=== PATIENT | female | born 1985 | race Caucasian/White ===

== ENCOUNTER 2020-06-22 19:26 | Outpatient (CLI) | payer BC ==
--- NOTE | 2020-06-22 19:46 | ER Document Report ---
Doctor's Note Notes: 06/22/20 19:45 Patient seen in conjunction with physician assistant terminal manager, please see her note to correlate with mine. In short this is a 34-year-old female with a history of restless legs, history of hepatitis C, who presents to the emergency department for abdominal swelling and abdominal tightness. Her last menstrual period was back in November. On exam, abdomen is clearly gravid, with uterine fundus palpable several centimeters above the umbilicus. Ultrasound performed in the triage room showed a single intrauterine with a heart rate approximately 150. Patient has had intermittent abdominal tightening, I am concerned about the possibility of this patient who has had no care being in labor. The L&D floor was called, the patient will be transported there for further evaluation.
--- NOTE | 2020-06-22 19:53 | ER Document Report ---
ED Medical Screen (RME) - General Chief Complaint: Abdominal Pain Stated Complaint: SWOLLEN ABDOMEN Time Seen by Provider: 06/22/20 19:30 TRAVEL OUTSIDE OF THE [place] IN LAST 30 DAYS: No - HPI Notes: 06/22/20 19:50 34-year-old female to the emergency department with abdominal swelling, abdominal pain has been getting worse for the past 3 weeks. She states she has a history of hepatitis C and thought that maybe it was ascites. She also states she thought maybe it was constipation. She has been taking stimulant medicine to help her go to the bathroom. She states initially when she would take the me dicine and have a bowel movement her abdomen would get smaller. However in the past 3 weeks it has not. She has been told in the past that she has polycystic ovarian syndrome and she cannot get . Her last menstrual period was in November. She states she typically only has a menstrual cycle twice a year. Denies any vaginal bleeding. Denies any urinary complaints. Quick bedside ultrasound reveals fetus with heartbeat. Dr. Lee is bedside with me and agrees with sending patient to labor and delivery for labor check. - Related Data Allergies/Adverse Reactions: methylprednisolone [From Solu-Medrol] Allergy (Verified 08/25/16 00:55) prednisone Allergy (Verified 08/25/16 00:55)
--- NOTE | 2020-06-22 20:51 | RADIOLOGY REPORT (SQ) ---
EXAM DESCRIPTION: Third trimester OB ultrasound. CLINICAL HISTORY: 34 years Female; dates /no care TECHNIQUE: Transabdominal obstetrical ultrasound was performed. COMPARISON: None. FINDINGS: Number of fetuses: Single position: Cephalic Amniotic fluid: 16.5 cm. Largest pocket 5.29 cm. Cervix:Closed, 3.3 cm in length Placenta: Posterior and fundal. Grade 1. HR: 149 bpm Biometry: BPD: 7.64 cm, 30 weeks five days, 50th percentile HC: 27.87 cm, 30 weeks four days, 21st percentile AC: 25.45 cm, 29 weeks four days, 26th percentile FL: 5.36 cm, 28 weeks three days, 3rd percentile EFW: 1386 g, 36th percentile HC/AC: 1.10 Composite Gestational Age: 29 weeks six days. Estimated delivery date 09/01/2020 Anatomy: The bladder and three-vessel umbilical cord are seen. Four-chamber heart. There is dilatation of the renal pelvis. Right renal pelvis measures 1.1 cm and the left 1.0 cm. IMPRESSION: 1. Single living intrauterine in cephalic presentation. 2. Ultrasound gestational age of 29 weeks six days and estimated delivery date of 09/01/2020. 3. Dilatation of the renal collecting system bilaterally.
== END 2020-06-22 22:04 | disposition home or self-care (01) ==
LOC: EDSTATUS 20:06 → LC 20:07
PROVIDERS: ATTEND Obstetrics & Gynecology Gynecology
DX: O26.892 Other specified pregnancy related conditions, second trimester (principal); R19.00 Intra-abdominal and pelvic swelling, mass and lump, unspecified site; Z3A.27 27 weeks gestation of pregnancy
CPT/HCPCS: 76815

== ENCOUNTER 2020-09-02 00:05 | Inpatient (IN) | payer BC ==
[2020-09-02] MEDS ORDERED: DINOPROSTONE 10 MG VAGINAL INSERT.SR ONE (00:19)
[2020-09-02] MEDS ORDERED: RINGERS SOLUTION,LACTATED 1,000 ML IV PRN (00:39)
[2020-09-02] MEDS ORDERED: RINGERS SOLUTION,LACTATED 1,000 ML IV ONE (00:39)
[2020-09-02] MEDS ORDERED: DINOPROSTONE 10 MG VAGINAL INSERT.SR PV PRN (00:39)
[2020-09-02 01:07] LABS: APPEARANCE,URINE SLIGHTLY-CLOUDY; BILIRUBIN,URINE NEGATIVE (NEGATIVE); COLOR,URINE YELLOW; GLUCOSE, URINE 50 mg/dL (NEGATIVE); KETONES,URINE NEGATIVE (NEGATIVE); LEUKOCYTE ESTERASE,URINE NEGATIVE (NEGATIVE); NITRITE,URINE NEGATIVE (NEGATIVE); PROTEIN,URINE NEGATIVE (NEGATIVE); UROBILINOGEN,URINE NEGATIVE mg/dL (<2.0)
[2020-09-02 01:10] LABS: HEMATOCRIT 33.8 % (36.0-47.0); HEMOGLOBIN 11.5 g/dL (12.0-15.5); MEAN CORPUSCULAR HEMOGLOBIN 29.5 pg (27.0-33.4); MEAN CORPUSCULAR VOLUME 87 fl (80-97); PLATELET COUNT 129 10^3/uL (150-450); RED CELL DISTRIBUTION WIDTH 13.4 % (11.5-14.0); WHITE BLOOD COUNT 8.6 10^3/uL (4.0-10.5)
[2020-09-02 01:32] LABS: URINE AMPHETAMINES SCREEN NEGATIVE; URINE BARBITURATES SCREEN NEGATIVE; URINE BENZODIAZEPINES SCREEN NEGATIVE; URINE COCAINE SCREEN NEGATIVE; URINE MARIJUANA (THC) SCREEN NEGATIVE; URINE METHADONE SCREEN NEGATIVE; URINE PHENCYCLIDINE SCREEN NEGATIVE
--- NOTE | 2020-09-02 11:08 | Admission Physical ---
Datetime Report Generated by CPN: 09/02/2020 11:08 CURRENT ADMISSION Chief Complaint: Scheduled Induction of Labor Indication for Induction: Polyhydramnios Admit Impression : Term, Intrauterine ; Induction of Labor Admit Plan: Admit to Unit ALLERGIES Medication Allergies: Unknown Medication Allergies: methylprednisolone (08/25/2016); prednisone (08/25/2016) Latex: No Latex Allergies Food Allergies: yes Environmental Allergies: yes OBSTETRICAL HISTORY EDC: 09/01/2020 00:00 : 1 Para: 0 Term: 0 : 0 SAB: 0 IAB: 0 Ectopic: 0 Livin Cesareans: 0 VBACs: 0 Multiple Births: 0 Gestational Diabetes: No Rh Sensitization: No Incompetent Cervix: No MAYDA: No Infertility: No ART Treatment: No Uterine Anomaly: No IUGR: No Hx Previous C/S: No Macrosomia: No Hx Loss/Stillborn: No PIH: No Hx : No Placenta Previa/Abruption: No Depression/PP Depression: No PTL/PROM: No Post Hemorrhage: No Current Procedures: Ultrasound Obstetrical History Comments: G1- current SEE RECORDS Alcohol: No Marijuana : No Cocaine: No Other Illicit Drugs: No Cigarettes: Never Smoker. [id number] MEDICAL HISTORY Diabetes: No Blood Transfusion: Yes Pulmonary Disease (Asthma, TB): No Breast Disease: No Hypertension: No Test Manager Surgery: No Heart Disease: No Hosp/Surgery: No Autoimmune Disorder: No Anesthetic Complications: No Kidney Disease: No Abnormal Pap Smear: No Neuro/Epilepsy: No Psychiatric Disorders: No Other Medical Diseases: No Hepatitis/Liver Disease: No Significant Family History: No Varicosities/Phlebitis: No Trauma/Violence : No Thyroid Dysfunction: No Medical History Comments: Hep C as child from blood transfusion, LEEP INFECTIOUS HISTORY Gonorrhea: No Genital Herpes: No Chlamydia: No Tuberculosis: No Syphilis: No Hepatitis: No HIV/AIDS Exposure: No Rash or Viral Illness: No HPV: Yes PHYSICAL EXAM General: Normal HEENT: Normal Neurologic: Normal Thyroid: Normal Heart: Normal Lungs: Normal Breast: Deferred Back: Normal Abdomen: Normal Genitourinary Exam: Normal Extremities: Normal DTRs: Normal Pelvic Type: Adequate Vital Signs: Reviewed VAGINAL EXAM Dilatation: 1 Effacement: 80 Station: -2 MEMBRANES Pooling: Negative Membranes: Ruptured FETUS A EGA: 40.1 Monitoring: External US FHR- Baseline: 120 Variability: Moderate 6-25bpm Decelerations: None FHR Category: Category I Presentation: Vertex Admit Comment: efw is 7-8 lbs, peds to check post delivery PLANS FOR LABOR AND DELIVERY Feeding Preference: Breast Benefit of Breast Feed Discussed: Yes INFORMED CONSENT Signature: with User ID: [email or web address]
[2020-09-02] MEDS ORDERED: OXYTOCIN/0.9 % SODIUM CHLORIDE 30 UNIT/500 ML RTUINJ IV PRN (14:47)
[2020-09-02] MEDS ORDERED: MISOPROSTOL 0.2 MG TABLET ONE ×2 (14:50→20:58)
[2020-09-02] MEDS ORDERED: OXYTOCIN/0.9 % SODIUM CHLORIDE 0 UNIT/0 ML RTUINJ ONE (14:50)
[2020-09-02] MEDS ORDERED: OXYTOCIN 10 UNIT/ML VIAL ONE ×2 (14:50→20:58)
[2020-09-02] MEDS ORDERED: LIDOCAINE 1% INJ-PF (10 MG/ML) 30 ML SDV ONE ×2 (14:50→20:58)
[2020-09-02] MEDS ORDERED: OXYTOCIN/0.9 % SODIUM CHLORIDE 30 UNIT/500 ML RTUINJ ONE (20:58)
[2020-09-02] MEDS ORDERED: FENTANYL/BUPIVACAINE/NS/PF 300 MCG/150 ML RTUINJ EPI ONE (20:58)
[2020-09-02] MEDS ORDERED: EPHEDRINE SULFATE INJ 50 MG/1 ML AMPULE ONE (20:58)
[2020-09-02] MEDS ORDERED: ROPIVACAINE HCL 0.2% INJ/PF (2 MG/ML) 20 ML SDV ONE (20:59)
[2020-09-03] MEDS ORDERED: MEASLES,MUMPS&RUBELLA VACC/PF 0.5 ML VIAL SUBCUT PRN (02:46)
[2020-09-03] MEDS ORDERED: DIPH/PERTUSS(ACELL)/TETANUS VAC/PF 0.5 ML SYR (>=10YO) IM PRN (02:46)
[2020-09-03] MEDS ORDERED: OXYTOCIN/0.9 % SODIUM CHLORIDE 30 UNIT/500 ML RTUINJ IV PRN (02:46)
[2020-09-03] MEDS ORDERED: PROMETHAZINE HCL 25 MG SUPP.RECT PR PRN (02:46)
[2020-09-03] MEDS ORDERED: ZOLPIDEM TARTRATE 5 MG TABLET PO PRN (02:46)
[2020-09-03] MEDS ORDERED: PROMETHAZINE HCL INJ 25 MG/1 ML VIAL IV PRN (02:46)
[2020-09-03] MEDS ORDERED: ACETAMINOPHEN WITH CODEINE #3 TABLET PO PRN ×2 (02:46)
[2020-09-03] MEDS ORDERED: BENZOCAINE/MENTHOL AEROSOL SPRAY 56 ML TOP PRN (02:46)
[2020-09-03] MEDS ORDERED: PROMETHAZINE HCL 25 MG TABLET PO PRN (02:46)
[2020-09-03] MEDS ORDERED: GLYCERIN/WITCH HAZEL LEAF 1 EACH MED..WIPE TP PRN (02:46)
[2020-09-03] MEDS ORDERED: PSEUDOEPHEDRINE HCL 30 MG TABLET PO PRN (02:46)
[2020-09-03] MEDS ORDERED: MAGNESIUM HYDROXIDE SUSP 30 ML UDCUP PO PRN (02:46)
[2020-09-03] MEDS ORDERED: DIBUCAINE 1% OINTMENT 28 GM TP PRN (02:46)
[2020-09-03] MEDS ORDERED: DIPHENHYDRAMINE HCL 25 MG CAPSULE PO PRN (02:46)
[2020-09-03] MEDS ORDERED: NA PHOS,M-B/NA PHOS,DI-BA (ADULT) 133 ML ENEMA PR PRN (02:46)
[2020-09-03] MEDS ORDERED: ACETAMINOPHEN 650 MG SUPP.RECT PR PRN (02:46)
--- NOTE | 2020-09-03 03:39 | Birth Certificate Data ---
Cert Data Datetime Report Generated by CPN: 09/03/2020 03:39 CERTIFICATE DATA Delivery Provider: Karen Rubi MD (06/22/2020 21:52:Tory Young RN) 47a. Care: Yes (06/22/2020 21:52:Kyra Mccullough RN) 47b. Date of First Visit: 06/25/2020 00:00 (06/22/2020 21:52:Kyra Mccullough RN) 48a. Number of Prev Live Births: 0 (06/22/2020 21:52:Kyra Mccullough RN) 48b. Now Livin (06/22/2020 21:52:ARGENIS Ayon) 48c. Live Births Now : 0 (06/22/2020 21:52:QS system process) 48e. Losses: 0 (06/22/2020 21:52:Kyra Mccullough RN) RISK FACTORS IN THIS 49a. Diabetes: No (06/22/2020 21:52:Jessica Henley RN) 49b. Hypertension: No (06/22/2020 21:52:Jessica Henley RN) 49c. Previous Births: 0 (06/22/2020 21:52:ARGENIS Ayon) 49d. Stillborns: No (06/22/2020 21:52:Jessica Henley RN) 49d. IUGR: No (06/22/2020 21:52:Jessica Henley RN) 49e. Infertility Treatment: No (06/22/2020 21:52:Jessica Henley RN) 49f. Previous Cesareans: 0 (06/22/2020 21:52:Kyra Mccullough RN) Mother's Height 50b. Height Inches: 65 (06/22/2020 20:08:QS system process) Mother's Weight 51b. Weight at Delivery (lbs): 176 (06/22/2020 20:08:QS system process) Infections Present/Treated 53a. Gonorrhea: No (06/22/2020 21:52:Jessica Henley RN) Results this Hospital Visit : Negative (06/22/2020 21:52:Kyra Mccullough RN) 53b. Syphilis: No (06/22/2020 21:52:Jessica Henley RN) Results this Hospital Visit: NONREACTIVE (09/02/2020 00:57:QS system process) 53c. Chlamydia: No (06/22/2020 21:52:Jessica Henley RN) Results this Hospital Visit: Negative (06/22/2020 21:52:Kyra Mccullough RN) 53d. Hepatitis B: No (06/22/2020 21:52:Jessica Henley RN) Results this Hospital Visit: Negative (06/22/2020 21:52:Kyra Mccullough RN) 53e. Hepatitis C: Negative (06/22/2020 21:52:Kyra Mccullough RN) 53h. Mother Tested for HBsAG: Yes (06/22/2020 21:52:Kyra Mccullough RN) 53i. Date Tested: 06/25/2020 00:00 (06/22/2020 21:52:Kyra Mccullough RN) 53j. Test Result: Negative (06/22/2020 21:52:Kyra Mccullough RN) Obstetric Procedures 54a, b, c. Obstetric Procedures: Ultrasound (06/22/2020 21:52:Jessica Henley RN) Cigarette Smoking Cigarette Smoking: Never Smoker. [id number] (06/22/2020 21:52:Kyra Mccullough RN) 55a. 3 Months Before Preg - Ci (Annotations: Data stored by [facility] on behalf of user) (06/22/2020 21:52:Kyra Mccullough RN) Onset of Labor 56a. PROM >12 Hrs: 6.05 (06/22/2020 21:52:QS system process) 56b. Precipitous Labor <3 Hrs: 6 (06/22/2020 21:52:QS system process) 56c. Prolonged Labor > 20 Hrs: 6 (06/22/2020 21:52:QS system process) 57a. Induction of Labor: Induction (06/22/2020 21:52:Tory Young RN) 57a. Induction of Labor: Cervidil (09/02/2020 00:43:Kyra Mccullough RN) 57c. Non-Vertex Presentation A: Vertex (06/22/2020 21:52:Tory Young RN) 57d. Steroids - Lung Mat: None (06/22/2020 21:52:Tory Young RN) 57d. Steroids - Lung Mat: Not Applicable (06/22/2020 21:52:Tory Young RN) 57f. Mat Chorio or Temp >100.4: 98.8 (06/22/2020 21:52:Tory Young RN) 57g. Moderate/Heavy Meconium: Clear (09/02/2020 20:11:Kyra Mccullough RN) 57h. Intolerance of Labor: N/A (06/22/2020 21:52:Kyra Mccullough RN) : N/A (06/22/2020 21:52:Kyra Mccullough RN) 57i. Epidural/Spinal Anesthesia: Epidural (06/22/2020 21:52:Tory Young RN) Method of Delivery 58a. Forceps - Unsuccessful A: N/A (06/22/2020 21:52:Tory Young RN) 58b. Vacuum - Unsuccessful A: N/A (06/22/2020 21:52:Tory Young RN) 58c. Presentation at 58c. Presentation at - A : Vertex (06/22/2020 21:52:Tory Young RN) 58c. Presentation at - A : N/A (06/22/2020 21:52:Tory Young RN) 58c. Presentation at - A : Cephalic (09/02/2020 20:11:Kyra Mccullough RN) Final Route and Method of Del 58d. Baby A Route/Delivery: Vaginal (09/03/2020 02:14:Kyra Mccullough RN) 58e. Trial of Labor Attempted: No (06/22/2020 21:52:Kyra Mccullough RN) 58e. Trial of Labor Attempted A: N/A (06/22/2020 21:52:Tory Young RN) 58e. Trial of Labor Attempted B: N/A (06/22/2020 21:52:Tory Young RN) Maternal Morbidity 59b. 3rd or 4th Degree Lacs: Perineal (06/22/2020 21:52:Karen Rubi MD (BRITTDA)) Birthweight Baby A: 3320 (06/22/2020 21:52:Daniela Chavis RN) 60a. Pounds : 7 (06/22/2020 21:52:QS system process) 60b. Ounces: 5 (06/22/2020 21:52:QS system process) 61. GA at Delivery Baby A: 40.1 (06/22/2020 21:52:Tory Young RN) : Full Term- 39- 40.6 Weeks (06/22/2020 21:52:QS system process) 62a. 5 Minute Baby A: 9 (06/22/2020 21:52:QS system process)
--- NOTE | 2020-09-03 03:39 | Delivery Summary ---
Del Sum A-C Datetime Report Generated by CPN: 09/03/2020 03:39 DELIVERY PERSONNEL DELIVERY PERSONNEL: [id number] Delivery Doctor:: Karen Rubi MD Labor and Delivery Nurse:: Kyra Mccullough RNoffal roller Nurse:: Tory Kooaltagracia, RN MATERNAL INFORMATION Delivery Anesthesia: Epidural Medications After Delivery: Pitocin Bolus-Please Comment; Pitocin 30 Units in 500ml NS/D5W Estimated Blood Loss (ml): 250 Delivery QBL: 100 Maternal Complications: None LABOR SUMMARY EDC: 09/01/2020 00:00 No. Babies in Womb: 1 Attempted: No Labor Anesthesia: Epidural LABOR INFORMATION Reason for Induction: Polyhydramnios Onset of Labor: 09/02/2020 20:11 Complete Dilatation: 09/02/2020 23:57 Cervical Ripening Agents: Cervidil Oxytocin: Induction Group B Beta Strep: Negative Antibiotics # of Doses: 0 Name of Antibiotic Given: n/a Steroids Given: None Reason Steroids Not Administered: Not Applicable MEMBRANES Membranes Rupture Method: Spontaneous Rupture of Membranes: 09/02/2020 20:11 Length of Rupture (hr): 6.05 Amniotic Fluid Color: Clear Amniotic Fluid Amount: Large Amniotic Fluid Odor: Normal STAGES OF LABOR Stage 1 hr: 3 Stage 1 min: 46 Stage 2 hr: 2 Stage 2 min: 17 Stage 3 hr: 0 Stage 3 min: 9 Total Time in Labor hr: 6 Total Time in Labor min: 12 VAGINAL DELIVERY Episiotomy: None Laceration #1: Perineal Laceration Extension #1: Second Degree Laceration #2: Vaginal Laceration Extension #2: N/A Laceration #3: None Laceration Extension #3: N/A Laceration Repair: Yes Laceration Repair Note: Large right sided vaginal laceration repaired with 3-0 chromic suture providing hemostasis and restoring symmetry. The large perineal laceration was repaired with 3-0 chromic suture in usual fashion. Rectal exam after the repair revealed no defects. Sponge Count Correct: Vaginal Sweep Performed Sharps Count Correct: Yes CSECTION DELIVERY Primary Indication: N/A Secondary Indication: N/A CSection Incidence: N/A Labor: N/A Elective: N/A CSection Incision: N/A BABY A INFORMATION Delivery Date/Time: 09/03/2020 02:14 Method of Delivery: Vaginal Nurse Controlled Delivery: No Born in Route : No : N/A Forceps: N/A Vacuum Extraction: N/A Shoulder Dystocia : No PRESENTATION/POSITION BABY A Presentation: Cephalic Cephalic Presentation: Vertex Vertex Position: Right Occipital Anterior Breech Presentation: N/A PLACENTA INFORMATION BABY A Placenta Delivery Time : 09/03/2020 02:23 Placenta Method of Delivery: Spontaneous Placenta Status: Delivered SCORES BABY A Heart Rate 1 min: >100 bpm Resp Effort 1 min: Good Cry Reflex Irritability 1 min: Cough or Sneeze or Pulls Away Muscle Tone 1 min: Active Motion Color 1 min: Blue/Pale Resuscitation Effort 1 min: Tactile Stimulation SCORE 1 MIN: 8 Heart Rate 5 min: >100 bpm Resp Effort 5 min: Good Cry Reflex Irritability 5 min: Cough or Sneeze or Pulls Away Muscle Tone 5 min: Active Motion Color 5 min: Body [place] Neck, Extremities Blue Resuscitation Effort 5 min: Tactile Stimulation SCORE 5 MIN: 9 INFORMATION BABY A Gestational Age at Delivery: 40.1 Gestational Status: Full Term- 39- 40.6 Weeks Infant Outcome : Liveborn Condition : Stable Infant Sex: Male IDENTIFICATION BABY A Infant Verification Date/Time: 09/03/2020 02:55 ID Band Number: [id number] Mother's Name Verified: Yes Infant RN Verifying Infant: K Suhsa, RN/ R Hannah, RN WEIGHT/LENGTH BABY A Birthweight (gm): 3320 Infant Weight (lb): 7 Weight (oz): 5 Length (in): 20.00 Infant Length (cm): 50.80 CORD INFORMATION BABY A No. Cord Vessels: 3 Nuchal Cord : N/A Cord Blood Taken: Yes-For Storage (Mom's Blood type +) Infant Suction: Mouth ASSESSMENT BABY A Complications: None Physical Findings at Delivery: Within Normal Limits Skin to Skin: Yes Transferred To: Remains with Mother BABY B INFORMATION : N/A SIGNATURES Signature: with User ID: [email or web address]
[2020-09-03] MEDS: IBUPROFEN 800 MG TABLET PO SCH ×3 (07:11→21:02)
[2020-09-03] MEDS: DOCUSATE SODIUM 100 MG CAPSULE PO SCH ×2 (09:27→17:34)
[2020-09-03] MEDS: SENNOSIDES/DOCUSATE 8.6-50 MG 1 EACH TABLET PO SCH (09:27)
[2020-09-03] MEDS: FERROUS SULFATE 325 MG TABLET PO SCH ×2 (09:27→17:33)
[2020-09-03] MEDS: FAMOTIDINE 20 MG TABLET PO SCH ×2 (09:31→21:05)
[2020-09-03] MEDS: PRENATAL VITAMIN W DHA CAPSULE PO SCH (09:31)
[2020-09-04] MEDS: IBUPROFEN 800 MG TABLET PO SCH ×3 (05:18→22:18)
[2020-09-04 06:44] LABS: HEMATOCRIT 28.7 % (36.0-47.0); HEMOGLOBIN 9.8 g/dL (12.0-15.5); MEAN CORPUSCULAR HEMOGLOBIN 29.9 pg (27.0-33.4); MEAN CORPUSCULAR HGB CONC 34.1 g/dL (32.0-36.0); MEAN CORPUSCULAR VOLUME 88 fl (80-97); PLATELET COUNT 115 10^3/uL (150-450); RED BLOOD COUNT 3.27 10^6/uL (3.72-5.28); RED CELL DISTRIBUTION WIDTH 13.5 % (11.5-14.0)
[2020-09-04] MEDS: SENNOSIDES/DOCUSATE 8.6-50 MG 1 EACH TABLET PO SCH (10:43)
[2020-09-04] MEDS: DOCUSATE SODIUM 100 MG CAPSULE PO SCH ×2 (10:43→17:33)
--- NOTE | 2020-09-04 10:44 | PDOC PROGRESS REPORT ---
Subjective-OB Progress Note for:: 09/04/20 - PP day #1, doing well, no complaints, A+ Rubella Immune, Physical Exam (OB) Vital Signs: Temp Pulse Resp BP Pulse Ox 97.2 F 87 18 114/77 100 09/04/20 08:13 09/04/20 07:12 09/04/20 07:12 09/04/20 07:12 09/04/20 07:12 Intake & Output 09/03/20 09/04/20 09/05/20 06:59 06:59 06:59 Intake Total 120 Output Total 300 Balance -180 - General General Appearance: Appears well, Alert In distress: None - PIH/Pre-Eclampsia Clonus: Negative Headache: Absent Epigastric Pain: No Visual Changes: No - Maternal Morbidity 59. Maternal Morbidity (serious complications experinced by the mother associated with labor and delivery: None of the above - Lochia Lochia Amount: Scant < 10 ml Lochia Color: Rubra/Red - Abdomen Description: Soft Hernia Present: No Fundal Description: Firm, Midline Fundal Height: u/u - u/2 - Respiratory Respiratory Status: No respiratory distress - Abdominal Distension: No distension Tenderness: Nontender - Genitourinary Genitourinary Note: voiding - Extremities Upper extremity: Normal inspection Lower extremities: Normal inspection - Neurological Cognition: Normal Orientation: AAOx4 - Psychological Associated symptoms: Normal affect, Normal mood - Skin Skin Temperature: Warm Skin Moisture: Dry Objective-Diagnostic Laboratory: 09/04/20 06:04 09/04/20 06:04 WBC 12.0 H RBC 3.27 L Hgb 9.8 L Hct 28.7 L MCV 88 MCH 29.9 MCHC 34.1 RDW 13.5 Plt Count 115 L Assessment and Plan(PN) - Assessment and Plan (1) (normal spontaneous vaginal delivery) Is this a current diagnosis for this admission?: Yes (2) Drug use affecting Qualifiers: Trimester: third trimester Qualified Code(s): O99.323 - Drug use complicating , third trimester Is this a current diagnosis for this admission?: Yes (3) Encounter for induction of labor Is this a current diagnosis for this admission?: Yes (4) Gestational thrombocytopenia Qualifiers: Trimester: third trimester Qualified Code(s): O99.113 - Other diseases of the blood and blood-forming organs and certain disorders involving the immune mechanism complicating , third trimester; D69.6 - Thrombocytopenia, unspecified Is this a current diagnosis for this admission?: Yes Plan:: amublation encouraged, routine PP orders - Time Spent with Patient Time with patient: Less than 15 minutes Medications reviewed and adjusted accordingly: Yes - Disposition Anticipated Discharge Disposition: Home, Self Care Anticipated Discharge Timeframe: within 24 hours
[2020-09-04] MEDS: FAMOTIDINE 20 MG TABLET PO SCH ×2 (12:01→22:18)
[2020-09-04] MEDS: PRENATAL VITAMIN W DHA CAPSULE PO SCH (12:01)
[2020-09-04] MEDS: FERROUS SULFATE 325 MG TABLET PO SCH ×2 (12:01→17:32)
[2020-09-05] MEDS: IBUPROFEN 800 MG TABLET PO SCH (05:13)
[2020-09-05 08:57] VITALS: BP 130/86
[2020-09-05] MEDS: FERROUS SULFATE 325 MG TABLET PO SCH (09:56)
[2020-09-05] MEDS: DOCUSATE SODIUM 100 MG CAPSULE PO SCH (09:56)
[2020-09-05] MEDS: FAMOTIDINE 20 MG TABLET PO SCH (09:56)
[2020-09-05] MEDS: PRENATAL VITAMIN W DHA CAPSULE PO SCH (09:57)
[2020-09-05] MEDS: SENNOSIDES/DOCUSATE 8.6-50 MG 1 EACH TABLET PO SCH (09:57)
--- NOTE | 2020-09-05 10:47 | PDOC DISCHARGE SUMMARY ---
Impression - Admit/DC Date/PCP Admission Date/Primary Care Provider: 09/02/20 00:05 LAKISHA MAC MD Discharge Date: 09/05/20 - PP Day #2, doing well A+, rubella immune, - Discharge Diagnosis (1) (normal spontaneous vaginal delivery) Is this a current diagnosis for this admission?: Yes (2) Drug use affecting Is this a current diagnosis for this admission?: Yes (3) Encounter for induction of labor Is this a current diagnosis for this admission?: Yes (4) Gestational thrombocytopenia Is this a current diagnosis for this admission?: Yes (5) Polyhydramnios affecting Is this a current diagnosis for this admission?: Yes - Additional Information Resuscitation Status: Full Code Discharge Diet: As Tolerated, Regular Discharge Activity: Activity As Tolerated, No Lifting Over 10 Pounds, Pelvic Rest Referrals: LAKISHA MAC MD [Primary Care Provider] - Prescriptions: Ibuprofen [Motrin 800 mg Tablet] 800 mg PO Q8 #60 tablet Home Medications: Fexofenadine HCl [Yvette Allergy] 1 tab PO DAILY 06/22/20 Fluticasone Propionate [Flonase Nasal [place] 50 Mcg/[place] 16 gm] 1 spray NASL DAILY 09/02/20 Loratadine [Claritin 10 mg Tablet] 1 tab PO DAILY 09/02/20 Prenat 115/Iron Fum/Folic/Dss [ 19 Tablet] 1 tab PO DAILY 09/02/20 Ibuprofen [Motrin 800 mg Tablet] 800 mg PO Q8 #60 tablet 09/05/20 HPI Reason(s) for Admission: Induction of Labor, Other - polyhydramnios Procedures: NST, Ultrasound Intrapartum Procedure(s): Spontaneous Vaginal Delivery Complication(s): Laceration-Vaginal Laceration-Degree: 2nd Hospital Course 59. Maternal Morbidity (serious complications experinced by the mother associated with labor and delivery: None of the above Results Laboratory Results: WBC 12.0 10^3/uL (4.0-10.5) H 09/04/20 06:04 RBC 3.27 10^6/uL (3.72-5.28) L 09/04/20 06:04 Hgb 9.8 g/dL (12.0-15.5) L 09/04/20 06:04 Hct 28.7 % (36.0-47.0) L 09/04/20 06:04 MCV 88 fl (80-97) 09/04/20 06:04 MCH 29.9 pg (27.0-33.4) 09/04/20 06:04 MCHC 34.1 g/dL (32.0-36.0) 09/04/20 06:04 RDW 13.5 % (11.5-14.0) 09/04/20 06:04 Plt Count 115 10^3/uL (150-450) L 09/04/20 06:04 Urine Color YELLOW 09/02/20 00:15 Urine Appearance SLIGHTLY-CLOUDY 09/02/20 00:15 Urine pH 7.0 (5.0-9.0) 09/02/20 00:15 Ur Specific [place] 1.010 09/02/20 00:15 Urine Protein NEGATIVE mg/dL (NEGATIVE) 09/02/20 00:15 Urine Glucose (UA) 50 mg/dL (NEGATIVE) H 09/02/20 00:15 Urine Ketones NEGATIVE mg/dL (NEGATIVE) 09/02/20 00:15 Urine Blood NEGATIVE (NEGATIVE) 09/02/20 00:15 Urine Nitrite NEGATIVE (NEGATIVE) 09/02/20 00:15 Urine Bilirubin NEGATIVE (NEGATIVE) 09/02/20 00:15 Urine Urobilinogen NEGATIVE mg/dL (<2.0) 09/02/20 00:15 Ur Leukocyte Esterase NEGATIVE (NEGATIVE) 09/02/20 00:15 Urine Ascorbic Acid NEGATIVE (NEGATIVE) 09/02/20 00:15 Urine Opiates Screen NEGATIVE 09/02/20 00:15 Urine Methadone Screen NEGATIVE 09/02/20 00:15 Ur Barbiturates Screen NEGATIVE 09/02/20 00:15 Ur Phencyclidine Scrn NEGATIVE 09/02/20 00:15 Ur Amphetamines Screen NEGATIVE 09/02/20 00:15 U Benzodiazepines Scrn NEGATIVE 09/02/20 00:15 Urine Cocaine Screen NEGATIVE 09/02/20 00:15 U Marijuana (THC) Screen NEGATIVE 09/02/20 00:15 RPR NONREACTIVE (NONREACTIVE) 09/02/20 00:57 Blood Type A POSITIVE 09/02/20 00:57 Antibody Screen NEGATIVE 09/02/20 00:57 Plan Health Concerns: iron rich foods Plan of Treatment: d/c home, f/up with [facility] in 4 wks for PP check Time Spent: Less than 30 Minutes
== END 2020-09-05 14:59 | disposition home or self-care (01) | DRG 806 ==
LOC: LR 00:05 → 2S 09-03 04:28
PROVIDERS: ADMIT Obstetrics & Gynecology Gynecology; ATTEND Obstetrics & Gynecology
PROC: 10E0XZZ Delivery of Products of Conception, External Approach (ICD-10-PCS; principal; 2020-09-03)
PROC: 0KQM0ZZ Repair Perineum Muscle, Open Approach (ICD-10-PCS; 2020-09-03)
DX: O40.3XX0 Polyhydramnios, third trimester, not applicable or unspecified (principal); O99.12 Other diseases of the blood and blood-forming organs and certain disorders involving the immune mechanism complicating childbirth; D69.6 Thrombocytopenia, unspecified; O70.1 Second degree perineal laceration during delivery; Z3A.40 40 weeks gestation of pregnancy; Z86.19 Personal history of other infectious and parasitic diseases; Z37.0 Single live birth
CPT/HCPCS: 1967; 36415; 80307; 81005; 85027; 86592; 86850; 86900; 86901; J2590; J2795; J3010; J3490